=== PATIENT | female | born 1985 | race African-American/Black ===

== ENCOUNTER 2016-11-15 17:30 | Emergency (ER) | payer OTHER ==
[~2016-11-15] VITALS: Ht 160 cm; Wt 113.8 kg
[~2016-11-15 17:30] MED LIST: PREDNISONE20 MG PO; PROAIR HFA8.5 GM IH
[2016-11-15 17:47] VITALS: BP 119/66
[2016-11-15] MEDS ORDERED: MEDROL DOSEPAK4 MG PO (20:07)
[2016-11-15] MEDS ORDERED: ALLEGRA-D 121 TABLET PO (20:07)
== END 2016-11-15 20:20 | disposition home or self-care (01) ==
LOC: EME 17:30
DX: H69.80 Other specified disorders of Eustachian tube, unspecified ear (principal)
CPT/HCPCS: 99281; 99284

== ENCOUNTER 2017-03-09 06:44 | Emergency (ER) | payer OTHER ==
[~2017-03-09] VITALS: Ht 160 cm; Wt 108.8 kg
[~2017-03-09 06:44] MED LIST changes: +ALLEGRA-D 121 TABLET PO; +MEDROL DOSEPAK4 MG PO
[2017-03-09 07:24] LABS: EOSINOPHIL (%) 0.7 % (0-5); EOSINOPHIL COUNT 0.1 K/uL (0-0.3); HEMATOCRIT 35.4 % (36.0-46.0); IMMATURE GRANULOCYTE (%) 0.3 % (0.0-0.7); INSTRUMENT ABS NEUTROPHIL CT 7.9 K/uL; LYMPHOCYTE COUNT 1.9 K/uL (1.0-2.8); MCH 27.5 PG (29.0-34.0); MCHC 33.3 G/DL (30.0-36.0); MCV 82.5 FL (83-99); MEAN PLAT.VOLUME 11.1 uM^3 (9.5-12.4); MONOCYTE (%) 7.2 % (3-12); MONOCYTE COUNT 0.8 K/uL (0-0.8); NEUTROPHIL (%) 73.7 % (45-76); NEUTROPHIL COUNT 7.9 K/uL (1.8-6.4); PLATELET COUNT 345 K/uL (156-360); RBC DIS.WIDTH-CV 12.4 % (11.8-14.6); RBC DIS.WIDTH-SD 37.7 % (39-53); RED BLOOD COUNT 4.29 M/uL (3.80-5.20); WHITE BLOOD COUNT 10.7 K/uL (4.1-10.2)
[2017-03-09 08:10] LABS: ALKALINE PHOSPHATASE 69 IU/L (3-129); ANION GAP 10 MEQ/L (2-14); CHLORIDE 106 MEQ/L (99-109); GFR ESTIMATE (CALCULATED) > 59 mL/min/; GLUCOSE 112 mg/dL (70-99); LIPASE 10 U/L (1.0-51.0); POTASSIUM 3.6 MEQ/L (3.7-5.4); SAMPLE HEMOLYSIS CHECK 0; SAMPLE ICTERIC CHECK 0; SAMPLE LIPEMIA CHECK 0; SODIUM 137 MEQ/L (136-147); TOTAL BILIRUBIN 0.9 MG/DL (0.0-1.0); UREA NITROGEN (BUN) 7 mg/dL (9-23)
[2017-03-09 08:46] LABS: ADD MIUA? NO; BILIRUBIN NEGATIVE; BLOOD NEGATIVE; COLOR STRAW ((YELLOW)); GLUCOSE (STRIP) NEGATIVE; KETONES NEGATIVE; LEUKOCYTES NEGATIVE; NITRITE NEGATIVE; PROTEIN (STRIP) NEGATIVE; SPECIFIC GRAVITY 1.006 (1.000-1.030); UCUL ADDED? NO; UROBILINOGEN 0.2 MG/DL (0.2-1.0)
[2017-03-09] MEDS ORDERED: ZOFRAN4 MG PO (10:55)
[2017-03-09 11:29] VITALS: BP 121/84
== END 2017-03-09 11:43 | disposition home or self-care (01) ==
LOC: EME → EDBD 06:44 → EME 11:43
PROVIDERS: Emergency Medicine
DX: R11.2 Nausea with vomiting, unspecified (principal); Z98.51 Tubal ligation status
CPT/HCPCS: 80048; 80053; 81003; 83690; 84702; 84702 90; 85025; 99281; 99285; J2405; J7030